=== PATIENT | male | born 1960 | race Caucasian/White ===

== ENCOUNTER 2018-04-19 05:17 | Day surgery (SDC) | payer BC ==
[~2018-04-19] VITALS: Ht 188 cm; Wt 100.7 kg
[~2018-04-19 05:17] MED LIST: ACET-1600 PO; DEXL60CA2 PO; MV,M1TAB6 PO; [UNRECOGNIZED DRUG - CODE] PO
[2018-04-19] MEDS ORDERED: LACTATED RINGERS 1,000 ML IV SCH (05:52)
[2018-04-19] MEDS ORDERED: TRANEXAMIC ACID 100 MG/ML, 10ML ONE (06:13)
[2018-04-19 06:15] VITALS: BP 152/94
[2018-04-19] MEDS ORDERED: MIDAZOLAM 1 MG/ML, 2ML ONE (06:18)
[2018-04-19] MEDS ORDERED: FENTANYL PF 250 MCG/5ML ONE ×2 (06:21→07:33)
[2018-04-19] MEDS ORDERED: ROCURONIUM 10MG/ML,5ML ONE (06:24)
[2018-04-19] MEDS ORDERED: CEFAZOLIN 1,000 MG ONE (06:24)
[2018-04-19] MEDS ORDERED: NEOSTIGMINE 1 MG/ML, 10ML ONE (06:24)
[2018-04-19] MEDS ORDERED: GLYCOPYRROLATE 0.2MG/1ML, 5ML ONE (06:24)
[2018-04-19] MEDS ORDERED: PROPOFOL 10 MG/ML, 20ML ONE (06:24)
[2018-04-19] MEDS ORDERED: ACETAMINOPHEN 500 MG TABLET PO ONE (06:30)
[2018-04-19] MEDS ORDERED: GABAPENTIN 300 MG CAPSULE PO ONE (06:30)
[2018-04-19] MEDS ORDERED: FENTANYL PF 100 MCG/2ML IV PRN (07:00)
[2018-04-19] MEDS ORDERED: PROMETHAZINE 25 MG/ML, 1ML IM PRN ×2 (07:00)
[2018-04-19] MEDS ORDERED: ONDANSETRON ODT 8 MG PO PRN (07:00)
[2018-04-19] MEDS ORDERED: MEPERIDINE/PF 25MG/0.5ML IVPush PRN (07:00)
[2018-04-19] MEDS ORDERED: LABETALOL 5MG/ML, 20ML IV PRN (07:00)
[2018-04-19] MEDS ORDERED: PROMETHAZINE 12.5 MG SUPP PR PRN (07:00)
[2018-04-19] MEDS ORDERED: hydrALAzine 20 MG/ML, 1ML IV PRN (07:00)
[2018-04-19] MEDS ORDERED: ONDANSETRON 2MG/ML, 2ML IV PRN (07:00)
[2018-04-19] MEDS ORDERED: HYDROmorphone 2 MG/ML, 1ML IVPush PRN (07:00)
[2018-04-19] MEDS ORDERED: PROMETHAZINE 25 MG SUPP PR PRN (07:00)
[2018-04-19] MEDS ORDERED: MORPHINE SULFATE 4 MG/ML, 1ML IVPush PRN (07:00)
[2018-04-19] MEDS ORDERED: LABETALOL 20 MG/4 ML ONE (07:32)
[2018-04-19] MEDS ORDERED: BUPIVACAINE/PF-EPI 0.5% 1:200K ONE (08:19)
[2018-04-19] MEDS ORDERED: TEMPLATE NON-FORMULARY MED. (Dexlansoprazole** (Dexilant**) 60 MG) PO SCH (09:00)
[2018-04-19] MEDS ORDERED: RANITIDINE HCL 150 MG PO SCH (09:00)
[2018-04-19] MEDS ORDERED: PROMETHAZINE 25 MG/ML, 1ML ONE (09:06)
[2018-04-19] MEDS ORDERED: OXYcodone 5 MG/5 ML ORAL.SOL UDC ONE (09:06)
[2018-04-19] MEDS ORDERED: FENTANYL PF 100 MCG/2ML ONE (09:06)
[2018-04-19] MEDS: PROMETHAZINE 25 MG/ML, 1ML IV PRN ×2 (09:10→09:40)
[2018-04-19] MEDS: OXYcodone 5 MG/5 ML ORAL.SOL UDC PO PRN ×2 (10:00→10:26)
[2018-04-19] MEDS ORDERED: ASPI-515 PO ×2 (22:21→22:23)
[2018-04-19] MEDS ORDERED: HYDR-3245 PO (22:22)
== END 2018-04-19 13:30 | disposition home or self-care (01) ==
LOC: OUT 05:17
PROVIDERS: ATTEND Orthopaedic Surgery
DX: M17.12 Unilateral primary osteoarthritis, left knee (principal); E11.9 Type 2 diabetes mellitus without complications; K21.9 Gastro-esophageal reflux disease without esophagitis; Z79.84 Long term (current) use of oral hypoglycemic drugs
CPT/HCPCS: 27446; 64447; 73560; 87081; 87147; C1713; C1776; J0360; J0690; J2250; J2550; J2704; J2710; J3010; J3490; J7120

== ENCOUNTER 2018-04-19 21:41 | Emergency (ER) | payer BC ==
[~2018-04-19] VITALS: Ht 188 cm; Wt 98.5 kg
[2018-04-19] MEDS ORDERED: HYDROmorphone 1 MG/ML, 1ML ONE ×2 (22:07→23:46)
[2018-04-19] MEDS: HYDROmorphone 2 MG/ML, 1ML IVPush PRN ×2 (22:13→23:48)
--- NOTE | 2018-04-19 22:15 | NUR ---
pt presented with c/o left knee pain, stated he had knee replacement at 0730 today and cannot get pain undercontrol. monitors applied, siderails up x2, call light within reach.
--- NOTE | 2018-04-19 22:17 | NUR ---
iv site started, pt medicated per mar.
[2018-04-19] MEDS ORDERED: ASPI-515 PO ×2 (22:21→22:23)
[2018-04-19] MEDS ORDERED: HYDR-3245 PO (22:22)
--- NOTE | 2018-04-19 23:03 | NUR ---
pt resting with eyes closed, nad, at bedside, call light within reach.
[2018-04-19 23:47] VITALS: BP 133/88
[2018-04-20] MEDS ORDERED: ONDANSETRON ODT 8 MG ONE (00:14)
== END 2018-04-20 00:24 | disposition home or self-care (01) ==
LOC: ED 22:27
DX: M25.562 Pain in left knee (principal); M96.89 Other intraoperative and postprocedural complications and disorders of the musculoskeletal system; Z87.891 Personal history of nicotine dependence
CPT/HCPCS: 96374; 96376; 99283; J1170